=== PATIENT | female | born 1990 | race Caucasian/White ===

== ENCOUNTER 2021-11-05 05:49 | Emergency (ER) | payer SELFPAY ==
[~2021-11-05] VITALS: Ht 167.6 cm; Wt 72.6 kg
== END 2021-11-05 06:58 | disposition left against medical advice (07) ==
LOC: ED 05:49
DX: M79.10 Myalgia, unspecified site (principal)
CPT/HCPCS: 80053; 81001; 84703; 85025; 87502; 96372; 99283; J1885; J2550; U0003